=== PATIENT | female | born 1955 | race Asian ===

== ENCOUNTER → 2021-08-28 12:50 | Outpatient (CLI) | payer MEDICARE, OTHER, SELFPAY ==
--- NOTE | 2021-08-28 | DI.MG.S_ITS ---
BILATERAL DIGITAL SCREENING MAMMOGRAM 3D/2D WITH CAD: 08/28/2021 CLINICAL: Routine screening. Comparison is made to exams dated: 09/14/2017 mammogram, 10/07/2015 mammogram, and 12/22/2011 mammogram - [facility]. There are scattered fibroglandular elements in both breasts. Current study was also evaluated with a Computer Aided Detection (CAD) system. No significant masses, calcifications, or other findings are seen in either breast. There has been no significant interval change. IMPRESSION: NEGATIVE There is no mammographic evidence of malignancy. A 1 year screening mammogram is recommended. This exam was interpreted at Station ID: [id number]. NOTE: For mammograms, a report in lay terms will be sent to the patient. Approximately 15% of breast malignancies will not be visualized mammographically. In the management of a palpable breast mass, a negative mammogram must not discourage biopsy of a clinically suspicious lesion. Electronically Signed By: Odalis barber/brandon:08/30/2021 10:15:55 letter sent: Normal Exam ACR BI-RADS Category 1: Negative [id number]
== END ==
PROVIDERS: Referring Provider Family Medicine; Visit Provider Family Medicine
DX: Z12.31 Encounter for screening mammogram for malignant neoplasm of breast (principal)
CPT/HCPCS: 77063; 77067

== ENCOUNTER 2025-09-04 09:18 | Day surgery (SDC) | payer MEDICARE, OTHER, SELFPAY ==
--- NOTE | 2025-09-04 06:58 | P.HP_ITS ---
History of Present Illness
--- NOTE | 2025-09-04 06:58 | PM.HP.IH.1 ---
History of Present Illness History of Present Illness Date Patient Seen: 09/04/25 Time Patient Seen: 06:58 Chief complaint: SDC Narrative: Patient presents for first screening colonoscopy today. Meds Home Medications and Allergies Home Medications ?Medication ?Instructions ?Recorded ?Confirmed ?Type sodium,potassium,mag sulfates 17.5 See Rx Instructions PO .COMPLEX 07/22/25 Rx gram-3.13 gram-1.6 gram oral soln #354 mL (Suprep Bowel Prep Kit) Exam Narrative Exam Narrative: Const General: comfortable Orientation: alert and oriented x3 Resp Effort & Inspection: normal respiratory effort and able to speak in complete sentences Cardio Rate: regular rate GI Palpation: soft (NT) Extrem General: no pedal edema and no calf tenderness Assessment & Plan Assessment and plan (1) Encounter for screening colonoscopy: Status: Acute Plan Plan screening colonoscopy, possible biopsy. The risks, benefits and options regarding the procedure were explained to the patient in detail. Risk discussion included but not limited to: bleeding, perforation, missed lesion, unable to reach cecum. The patient was encouraged to ask questions and they were answered to their satisfaction. The patient understands and is agreeable to proceed. Time-Based Coding :: [TOTAL MINUTES] spent with patient and on the chart (including review of chart, obtaining history, exam, reviewing outside data, placing orders, documenting exam and treatment plan, and counseling patient) on [DATE]. PROFEE Story Writer Document charge(s): Yes Charge Codes Inpatient/observation care including admit and discharge same day: [id number]
[2025-09-04 09:55] VITALS: BP 118/60; PULSE 85; RESP 18; TEMP 36.2; O2SAT 95
[2025-09-04] MEDS: LACTATED RINGERS 1,000 ML 42 ML IV (10:04)
--- NOTE | 2025-09-04 10:22 | P.OP.COLON_ITS ---
Operative Date/Time/Diagnoses
--- NOTE | 2025-09-04 10:22 | PM.OP.COLON ---
Operative Date/Time/Diagnoses Date of procedure: 09/04/25 Time of procedure: 10:59 Pre-op diagnosis: Screening colonoscopy Post-op diagnosis: other (Colon polyps) Procedure & Clinicians Study performed: Screening colonoscopy, polypectomy Same procedure(s) as scheduled: Yes Indications: 70yo F, first screening colonoscopy Surgeon: Nilson Roberts Anesthesia Type: MAC +/- Procedure Notes SCOAP/Timeout: Performed Procedure in detail: Colonoscopy Patient placed in left lateral recumbent position. Time out was performed. Procedural sedation was administered by anesthesia. Examination began with a thorough inspection of the perianal area. There was no evidence of fissures, fistulae, external hemorrhoids or cutaneous malignancy. The colonoscope was then placed into the rectum and the lumen was insufflated with carbon dioxide. The scope was carefully advanced forward. Ultimately the cecum was intubated and confirmed by identification of the ileocecal valve, the appendiceal orifice and the confluence of the taenia. The scope was then slowly withdrawn examining the colon thoroughly in all directions. In the rectum, retroflexion of the scope was performed for inspection of the distal rectum and anal canal. ?Significant colonoscopy findings: ?1. Quality of the preparation-good, [place] 2-3, improved with irrigation/suction ?2. Colon polyps x 2, 3mm, sessile, benign appearing, sigmoid x 1, 85cm x 1, removed with cold snare, retrieved for pathology 3. Several hyperplastic polyps in rectum, few sampled with cold biopsy forceps Scope withdrawal time: 13 minutes Findings: polyp(s) Specimen(s): other (polyps) Estimated Blood Loss: 5 Complications: none Impression: Colon polyps, path pending Post-procedure Plan for aftercare: PACU then floor Follow up: as needed Disposition: PACU
[2025-09-04 10:52] VITALS: BP 117/59; PULSE 86; RESP 16; TEMP 36.6; O2SAT 100
[2025-09-04 11:00] VITALS: BP 118/57; PULSE 80; RESP 16; TEMP 36.6; O2SAT 99
[2025-09-04 11:06] VITALS: BP 125/60; PULSE 76; RESP 18; TEMP 36.6; O2SAT 99
== END 2025-09-04 11:40 | disposition home or self-care (01) ==
PROVIDERS: PCP Internal Medicine; Referring Provider Surgery; Visit Provider Surgery
PROC: 0DJD8ZZ Inspection of Lower Intestinal Tract, Via Natural or Artificial Opening Endoscopic (ICD-10-PCS; CPT 45378; principal; 2025-09-04 10:30)
DX: Z12.11 Encounter for screening for malignant neoplasm of colon (principal); D12.8 Benign neoplasm of rectum; K63.5 Polyp of colon
CPT/HCPCS: 45385; 45380; J2704; J7120